=== PATIENT | male | born 1990 | race Asian ===

== ENCOUNTER 2021-03-06 08:21 | Emergency (ER) | payer OTHER ==
--- NOTE | 2021-03-06 08:41 | ED Physician Documentation ---
PD HPI UPPER EXT INJURY - Stated complaint Stated Complaint: RT ARM PX - History obtained from History obtained from: Patient - History of Present Illness Location: Right, Forearm, Hand Type of injury: Other (bit in forearm by large sized dog last evening. pain in muscle area but also having some mild redness develop around the wounds. No drainage. No numbness in arms. Some forearm pain with finger movement.) Timing - onset: Last night Timing - details: Abrupt onset, Still present Associated symptoms: Swelling, Discolored (some redness devloping). No: Weakness, Numbness Similar symptoms before: Has not had sx before Review of Systems Constitutional: denies: Fever, Chills Neurologic: denies: Focal weakness, Numbness PD PAST MEDICAL HISTORY - Past Medical History Past Medical History: No - Present Medications Home Medications: Ambulatory Orders Medication Instructions Recorded Confirmed Amox/Clav 875/125 [Augmentin] 1 each PO Q12H #14 tablet 03/06/21 Ibuprofen [Motrin] 600 mg PO TID PRN #25 tab 03/06/21 Mupirocin Calcium [Mupirocin] 1 applic TP TID #15 gm 03/06/21 - Allergies Allergies/Adverse Reactions: Allergies Allergy/AdvReac Type Severity Reaction Status Date / Time No Known Drug Allergies Allergy Verified 03/06/21 08:43 PD ED PE NORMAL - Vitals Vital signs reviewed: Yes - General General: Alert and oriented X 3, No acute distress, Well developed/nourished - HEENT HEENT: Atraumatic - Cardiac Cardiac: Other (bruising appearance of right chestwall just below the nipple. ) - Derm Derm: Normal color, Warm and dry - Extremities Extremities: Other (right forearm with several abrasions and 2 dog tooth sized puncture holes. No FB nor active bleeding. ) - Neuro Neuro: Alert and oriented X 3, No motor deficit, No sensory deficit, Normal speech Eye Opening: Spontaneous Motor: Obeys Commands Verbal: Oriented GCS Score: 15 Results - Vitals Vitals: Vital Signs - 24 hr 03/06/21 08:37 Temperature 36.6 C Heart Rate 58 L Respiratory 14 Rate Blood Pressure 123/96 H O2 Saturation 100 Oxygen O2 Source Room air PD MEDICAL DECISION MAKING - ED course Complexity details: re-evaluated patient (talked with patient about not wanting to close the wounds as higher change of infection with that. Keep open to help drain. bite mid forearm but it is wrist movement that hurts the foream.), considered differential (dog bite last evening with some redness around edges today. In creased pain and swelling. ), d/w patient Departure - Departure Disposition: 01 Home, Self Care Clinical Impression: Dog bite of forearm Qualifiers: Encounter type: initial encounter Laterality: right Qualified Code(s): S51.851A - Open bite of right forearm, initial encounter Condition: Stable Record reviewed to determine appropriate education?: Yes Instructions: ED Bite Dog Follow-Up: KAMRYN TINEO MD [Primary Care Provider] - Prescriptions: Amox/Clav 875/125 [Augmentin] 1 each PO Q12H #14 tablet Ibuprofen [Motrin] 600 mg PO TID PRN #25 tab PRN Reason: Pain Mupirocin Calcium [Mupirocin] 1 applic TP TID #15 gm Comments: Augmentin antibiotic twice daily to reduce infection. Ibuprofen 3 times a day with food for inflammation and pain. Last use of the right forearm for a couple of days due to discomfort. Use the wrist splint as needed to help with comfort. Cleanse the wounds twice daily with soap and water and apply mupirocin antibiotic ointment. Recheck if not improved well over the next couple of days. Forms: Activity restrictions Discharge Date/Time: 03/06/21 09:48
[2021-03-06 08:44] VITALS: BP 123/96
[2021-03-06] MEDS ORDERED: MUPIROCIN 2% OINT 1 GM TOP STA (08:58)
[2021-03-06] MEDS ORDERED: IBUPROFEN 600 MG TABLET PO STA (08:58)
[2021-03-06] MEDS ORDERED: AMOX/CLAV 875 MG/125 MG TABLET PO STA (08:58)
== END 2021-03-06 09:48 | disposition home or self-care (01) ==
LOC: ED 08:21
DX: S51.851A Open bite of right forearm, initial encounter (principal); W54.0XXA Bitten by dog, initial encounter
CPT/HCPCS: 99283; 99284; A9270